=== PATIENT | female | born 1955 | race Caucasian/White ===

== ENCOUNTER 2017-02-17 19:17 | Inpatient (IN) | payer BC, MEDICARE ==
[~2017-02-17] VITALS: Ht 162.6 cm; Wt 147.0 kg
[~2017-02-17 19:17] MED LIST: ASPIRIN CHEWABL81 MG PO; CLARITIN10 MG PO; CYCLOBENZAPRINE5 MG PO; DESYREL 50 MG T50 MG PO; DULCOLAX5 MG PO; FERROUS SULFAT325 M2 PO; KEPPRA250 MG PO; LOPRESSOR 25 MG25 MG PO; NORCO 10-325 T1 EACH PO; NORVASC10 MG PO; NOVOLOG100 UNIT/1 SQ; PLAVIX75 MG PO; PROTONIX40 M1 PO; SINGULAIR10 MG PO; SYMBICORT 16010.2 GM INH; VENTOLIN HFA8 GM INH; VITAMIN D50000 UNIT PO; ZINC50 M1 PO; ZYRTEC10 MG PO
[2017-02-17 20:41] LABS: HEMOGLOBIN 11.5 gm/dl (12.3-15.3); WHITE BLOOD COUNT 12.5 K/UL (4.5-11.0)
[2017-02-18] MEDS ORDERED: CLARITIN10 M2 PO (03:00)
[2017-02-18] MEDS ORDERED: SENNA CONCENTR8.6 MG PO (03:02)
[2017-02-18] MEDS ORDERED: [UNRECOGNIZED DRUG - OTHER] (03:04)
[2017-02-18] MEDS ORDERED: ZESTRIL/PRINIVI10 MG PO (03:07)
[2017-02-18] MEDS ORDERED: PROAIR HFA8.5 GM INH (03:09)
[2017-02-18] MEDS ORDERED: PROTONIX 40 MG40 M1 PO (04:50)
[2017-02-19 04:34] LABS: RED BLOOD COUNT 3.86 M/UL (4.00-5.10)
[2017-02-19 04:42] LABS: WHITE BLOOD COUNT 9.2 K/UL (4.5-11.0)
[2017-02-22] MEDS ORDERED: CEFAZOLIN1 GM/50 ML IV (10:37)
[2017-02-22] MEDS ORDERED: POVIDONE-IOD28.35 GM TP (10:41)
== END 2017-02-22 13:20 | disposition home health service (06) | DRG 560 ==
LOC: ER1 19:17 → ZEROF 02-18 01:30 → M/S 02-18 01:30
PROVIDERS: Emergency Medicine; Orthopaedic Surgery; ADMIT Internal Medicine
PROC: 0QPJX5Z Removal of External Fixation Device from Right Fibula, External Approach (ICD-10-PCS; 2017-02-20)
PROC: 0QPLX5Z Removal of External Fixation Device from Right Tarsal, External Approach (ICD-10-PCS; 2017-02-20)
PROC: 0QPGX5Z Removal of External Fixation Device from Right Tibia, External Approach (ICD-10-PCS; principal; 2017-02-20 17:00)
PROC: 02HV33Z Insertion of Infusion Device into Superior Vena Cava, Percutaneous Approach (ICD-10-PCS; 2017-02-21)
PROC: B548ZZA Ultrasonography of Superior Vena Cava, Guidance (ICD-10-PCS; 2017-02-21)
DX: T84.622A Infection and inflammatory reaction due to internal fixation device of right tibia, initial encounter (principal); L03.115 Cellulitis of right lower limb; N17.9 Acute kidney failure, unspecified; Z68.43 Body mass index [BMI] 50.0-59.9, adult; M86.8X6 Other osteomyelitis, lower leg; Y83.1 Surgical operation with implant of artificial internal device as the cause of abnormal reaction of the patient, or of later complication, without mention of misadventure at the time of the procedure; Y79.3 Surgical instruments, materials and orthopedic devices (including sutures) associated with adverse incidents; B95.61 Methicillin susceptible Staphylococcus aureus infection as the cause of diseases classified elsewhere; I12.9 Hypertensive chronic kidney disease with stage 1 through stage 4 chronic kidney disease, or unspecified chronic kidney disease; E11.22 Type 2 diabetes mellitus with diabetic chronic kidney disease; N18.1 Chronic kidney disease, stage 1; K21.9 Gastro-esophageal reflux disease without esophagitis; E66.9 Obesity, unspecified; I25.10 Atherosclerotic heart disease of native coronary artery without angina pectoris; I70.203 Unspecified atherosclerosis of native arteries of extremities, bilateral legs; J44.9 Chronic obstructive pulmonary disease, unspecified; J45.909 Unspecified asthma, uncomplicated; E11.40 Type 2 diabetes mellitus with diabetic neuropathy, unspecified; E11.69 Type 2 diabetes mellitus with other specified complication; G40.909 Epilepsy, unspecified, not intractable, without status epilepticus; I87.2 Venous insufficiency (chronic) (peripheral); K59.00 Constipation, unspecified; G89.29 Other chronic pain; Z95.1 Presence of aortocoronary bypass graft; Z96.41 Presence of insulin pump (external) (internal); Z95.820 Peripheral vascular angioplasty status with implants and grafts; Z87.891 Personal history of nicotine dependence; Z79.82 Long term (current) use of aspirin; Z79.891 Long term (current) use of opiate analgesic; Z79.899 Other long term (current) drug therapy; Z88.5 Allergy status to narcotic agent; Z90.49 Acquired absence of other specified parts of digestive tract; Z89.432 Acquired absence of left foot; Z89.411 Acquired absence of right great toe; Z98.890 Other specified postprocedural states; Z80.1 Family history of malignant neoplasm of trachea, bronchus and lung; Z82.49 Family history of ischemic heart disease and other diseases of the circulatory system; Z83.3 Family history of diabetes mellitus
CPT/HCPCS: 36415; 71010; 73590; 73610; 80048; 80053; 80202; 82962; 83605; 83690; 85025; 85027; 85610; 85730; 87040; 87070; 87077; 87186; 87205; 93005; 96365; 96366; 96367; 99284; J0690; J1650; J2250; J2270; J2405; J3010; J3370; J7030; J7050; J7070; J7120